=== PATIENT | male | born 1940 | race Caucasian/White ===

== ENCOUNTER → 2021-10-28 10:48 | Outpatient (CLI) | payer OTHER, SELFPAY ==
--- NOTE | ~2021-10-28 | US_ITS ---
US abdomen complete EXAMINATION: US Abdomen Complete INDICATION: Chronic kidney disease stage IV PROCEDURE: Realtime High Resolution abdomen ultrasound. COMPARISON: No prior studies for comparison FINDINGS: Gallbladder within normal limits. No gallstones, pericholecystic fluid, gallbladder wall t hickening or biliary dilatation. Common bile duct measures 3 mm. Liver echotexture is increased, consistent with fatty infiltration.. Pancreas within normal limits. Pancreatic tail is obscured by bowel gas. Spleen is unremarkeable. There are multiple bilateral pina al cysts, largest on the right measuring 1.7 cm and on the left measuring 6.8 cm. Right kidney measur es 12 cm. Left kidney measures 14.7 cm. Visualized aspects of the aorta and IVC are within normal limits. Portal vein is patent. No sonograph ic Villarreal's sign indicated by the technologist. IMPRESSION: 1: Hepatic steatosis 2: Bilateral renal cysts. Reviewed, dictated and finalized at location A.
== END ==
PROVIDERS: Visit Provider Internal Medicine Nephrology
DX: N18.4 Chronic kidney disease, stage 4 (severe) (principal); I25.5 Ischemic cardiomyopathy; I25.84 Coronary atherosclerosis due to calcified coronary lesion; I48.21 Permanent atrial fibrillation; I73.9 Peripheral vascular disease, unspecified; I10 Essential (primary) hypertension; E11.22 Type 2 diabetes mellitus with diabetic chronic kidney disease; E78.00 Pure hypercholesterolemia, unspecified; K76.0 Fatty (change of) liver, not elsewhere classified; N28.1 Cyst of kidney, acquired
CPT/HCPCS: 76700